=== PATIENT | female | born 1955 | race Two or more races ===

== ENCOUNTER 2025-04-04 14:43 | Outpatient (OUT) | payer OTHER, SELFPAY ==
[2025-04-04 16:08] LABS: Lactate Dehydrogenase 168 U/L (81-234)
[2025-04-05 04:08] LABS: AFP, Serum, Tumor Marker 4.1 ng/mL (0.0-9.2); Cancer Antigen (CA) 125 12.3 U/mL (0.0-38.1); HCG Tumor Marker <1 mIU/mL (.)
== END 2025-04-04 14:44 | disposition home or self-care (01) ==
LOC: LAB 14:48
PROVIDERS: Visit Provider Obstetrics & Gynecology
DX: N83.299 Other ovarian cyst, unspecified side (principal)
CPT/HCPCS: 36415; 82105; 82378; 83615; 84702; 86304